=== PATIENT | male | born 1960 | race African-American/Black ===

== ENCOUNTER 2019-04-17 02:16 | Emergency (ER) | payer SELFPAY ==
[~2019-04-17] VITALS: Ht 170.2 cm; Wt 65.3 kg
[2019-04-17 02:22] VITALS: BP 122/76
[2019-04-17 02:36] LABS: BASOPHILS % (AUTO) 0.7 % (0.0-2.0); EOSINOPHILS % (AUTO) 0.4 % (0.0-6.0); HEMATOCRIT 42 % (39-51); HEMOGLOBIN 13.5 g/dL (13.5-17.5); LYMPHOCYTES % (AUTO) 19.2 % (20.0-44.0); MEAN CORPUSCULAR HGB CONC 33 g/dl (31.0-36.0); MEAN CORPUSCULAR VOLUME 91 fL (80-96); MONOCYTES # (AUTO) 0.6 /CMM (0.1-1.30); MONOCYTES % (AUTO) 11.8 % (2.0-12.0); NEUTROPHILS # (AUTO) 3.6 /CMM (1.8-8.9); NEUTROPHILS % (AUTO) 67.9 % (43.0-81.0); PLATELET COUNT (AUTO) 252 /CMM (150-450); RED BLOOD CELL COUNT(AUTO) 4.58 MIL/uL (4.5-6.0); WHITE BLOOD COUNT (AUTO) 5.3 K/uL (4.3-11.0)
[2019-04-17 02:52] LABS: CALCIUM, SERUM 9.6 mg/dL (8.5-10.1); CARBON DIOXIDE 31 mmol/L (21-32); CHLORIDE 100 mmol/L (98-107); CREATININE 1.2 mg/dL (0.6-1.3); GLUCOSE 88 mg/dL (74-106); POTASSIUM 4.4 mmol/L (3.5-5.1); SODIUM SERUM 140 mmol/L (136-145); UREA NITROGEN, BLOOD 17 mg/dL (7-18)
[2019-04-17] MEDS ORDERED: OLANZAPINE 5 MG TABLET ONE (02:56)
[2019-04-17 02:58] LABS: ALANINE AMINOTRANSFERASE 24 U/L (12-78); ALBUMIN 4.4 g/dL (3.4-5.0); ALCOHOL, BLOOD < 3 mg/dL (0-0); ALKALINE PHOSPHATASE 48 U/L (46-116); ASPARTATE AMINOTRANSFERASE 18 U/L (15-37); BILIRUBIN,DIRECT 0.3 mg/dL (0.0-0.2); BILIRUBIN,TOTAL 1.4 mg/dL (0.2-1.0); TOTAL PROTEIN, SERUM 8.1 g/dL (6.4-8.2)
[2019-04-17 02:59] LABS: ACETAMINOPHEN 0 ug/ml (10-30); SALICYLATE < 0.2 mg/dL (2.8-20.0)
[2019-04-17] MEDS: OLANZAPINE 5 MG TABLET PO ONE (03:08)
[2019-04-17 03:51] LABS: APPEARANCE,URINE CLEAR (CLEAR); COLOR,URINE YELLOW (YELLOW); PH,URINE 5.5 (5.0-8.0); PROTEIN,URINE TRACE mg/dl (NEGATIVE); UGLUCOSE NEGATIVE (NEGATIVE)
[2019-04-17 03:52] LABS: BILIRUBIN,URINE SMALL (NEGATIVE); BLOOD, URINE NEGATIVE Ery/uL (NEGATIVE); KETONES,URINE 15 (NEGATIVE); LEUKOCYTE ESTERASE ,URINE NEGATIVE (NEGATIVE); NITRITE, URINE NEGATIVE (NEGATIVE); UROBILINOGEN,URINE 0.2 EU/dL (0.2)
[2019-04-17 03:53] LABS: BACTERIA,URINE Few /HPF (None Seen); SQUAMOUS EPITHELIAL CELL,UR Few /HPF (None Seen); WBC,URINE 0-2 /HPF (0-3)
--- NOTE | 2019-04-17 05:03 | NUR ---
SAM LI ([facility]) [phone]
--- NOTE | 2019-04-17 05:44 | NUR ---
CALLED DAUGHTER TO CODING FILE CLERK PATIENT. NO RESPONSE AT THIS TIME. WILL CALL BACK AGAIN SHORTLY.
--- NOTE | 2019-04-17 06:31 | NUR ---
CALLED DAUGHTER FOR PICKUP. NO RESPONSE AT THIS TIME. CALLED PATIENT SISTER. AWAITING CALL BACK.
--- NOTE | 2019-04-17 07:49 | NUR ---
CALLED FOR FOOD TRAY
--- NOTE | 2019-04-17 08:12 | NUR ---
SPOKE TO SAM (DAUGHTER), WILL FRUIT GRADER OPERATOR PATIENT BY 0930AM.
--- NOTE | 2019-04-17 08:42 | NUR ---
BREAKFAST TRAY PROVIDED. PATIENT TOLERATING PO WELL.
--- NOTE | 2019-04-17 10:21 | NUR ---
Patient discharged to home with kathleen Caballero in stable condition. Written and verbal after care instructions given. Patient and daughter verbalizes understanding of instruction.
== END 2019-04-17 10:25 | disposition home or self-care (01) ==
LOC: ER 02:17
DX: R44.0 Auditory hallucinations (principal)
CPT/HCPCS: 36415; 80048; 80076; 80305; 80307; 80329; 81001; 85025; 99284; G0480; 81000-TC

== ENCOUNTER 2019-06-05 14:16 | Inpatient (IN) | payer BC, OTHER ==
[~2019-06-05] VITALS: Ht 172.7 cm; Wt 62.1 kg
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
--- NOTE | 2019-06-05 14:27 | NUR ---
CODE RYDER PATIENT UNCOOPERATIVE, BECOMING RESTLESS AND AGITATED.
--- NOTE | 2019-06-05 14:55 | NUR ---
blood drawn and sent to lab. Patient still unable to provide urine sample at this time. Urinal provided.
[2019-06-05 15:00] LABS: BASOPHILS % (AUTO) 0.6 % (0.0-2.0); EOSINOPHILS % (AUTO) 0.8 % (0.0-6.0); HEMATOCRIT 41 % (39-51); HEMOGLOBIN 13.2 g/dL (13.5-17.5); LYMPHOCYTES # (AUTO) 1.4 /CMM (0.8-4.8); LYMPHOCYTES % (AUTO) 27.1 % (20.0-44.0); MEAN CORPUSCULAR HGB CONC 32 g/dl (31.0-36.0); MEAN CORPUSCULAR VOLUME 93 fL (80-96); MONOCYTES # (AUTO) 0.6 /CMM (0.1-1.30); MONOCYTES % (AUTO) 11.9 % (2.0-12.0); NEUTROPHILS % (AUTO) 59.6 % (43.0-81.0); PLATELET COUNT (AUTO) 265 /CMM (150-450); RED BLOOD CELL COUNT(AUTO) 4.38 MIL/uL (4.5-6.0); WHITE BLOOD COUNT (AUTO) 5.1 K/uL (4.3-11.0)
[2019-06-05 15:07] LABS: CALCIUM, SERUM 9.3 mg/dL (8.5-10.1); CARBON DIOXIDE 26 mmol/L (21-32); CHLORIDE 106 mmol/L (98-107); CREATININE 1.1 mg/dL (0.6-1.3); GLUCOSE 95 mg/dL (74-106); POTASSIUM 4.1 mmol/L (3.5-5.1); SODIUM SERUM 143 mmol/L (136-145); UREA NITROGEN, BLOOD 16 mg/dL (7-18)
[2019-06-05 15:13] LABS: ALCOHOL, BLOOD < 3 mg/dL (0-0)
--- NOTE | 2019-06-05 15:19 | NUR ---
Ordered by Joseph GUAJARDO to perform a straight catheter. Straight catheter done via sterile technique.
[2019-06-05 15:32] LABS: APPEARANCE,URINE Clear (CLEAR); BILIRUBIN,URINE Negative (NEGATIVE); BLOOD, URINE Negative Ery/uL (NEGATIVE); COLOR,URINE Yellow (YELLOW); KETONES,URINE Negative (NEGATIVE); LEUKOCYTE ESTERASE ,URINE Negative (NEGATIVE); NITRITE, URINE Negative (NEGATIVE); PROTEIN,URINE Negative (NEGATIVE); UGLUCOSE Negative (NEGATIVE); UROBILINOGEN,URINE 0.2 EU/dL (0.2)
[2019-06-05 15:32] LABS: ALANINE AMINOTRANSFERASE 17 U/L (12-78); ALKALINE PHOSPHATASE 70 U/L (46-116); ASPARTATE AMINOTRANSFERASE 19 U/L (15-37); BILIRUBIN,DIRECT 0.1 mg/dL (0.0-0.2); BILIRUBIN,TOTAL 0.8 mg/dL (0.2-1.0); TOTAL PROTEIN, SERUM 8.1 g/dL (6.4-8.2)
[2019-06-05 15:33] LABS: ACETAMINOPHEN 0 ug/ml (10-30)
[2019-06-05 15:34] LABS: SALICYLATE < 0.2 mg/dL (2.8-20.0)
--- NOTE | 2019-06-05 16:55 | NUR ---
KOLBY CAPILLA AUDIO VIDEO MECHANIC AT BEDSIDE FOR EVAL
[2019-06-05] MEDS ORDERED: ARIP10TA17 PO (18:09)
[2019-06-05] MEDS ORDERED: ESCI10TA PO (18:09)
--- NOTE | 2019-06-05 18:15 | NUR ---
report given to biju zhang for arpit.
[2019-06-05] MEDS ORDERED: OLANZAPINE 10 MG VIAL IM ONE ×2 (18:16→18:30)
--- NOTE | 2019-06-05 18:23 | NUR ---
bed assigned to room 220A
--- NOTE | 2019-06-05 18:50 | NUR ---
patient transferred to [facility] at 220A. patient in stable condition. No distress noted.
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
[2019-06-05 20:18] VITALS: BP 138/90
[2019-06-05] MEDS ORDERED: MAG HYDROX/AL HYDROX/SIMETH 30 ML UDC PO PRN (20:30)
[2019-06-05] MEDS ORDERED: MAGNESIUM HYDROXIDE 30 ML UDC PO PRN (20:30)
[2019-06-05] MEDS ORDERED: ACETAMINOPHEN 325 MG TABLET PO PRN (20:30)
[2019-06-05] MEDS ORDERED: LORAZEPAM 0.5 MG TABLET PO PRN (20:30)
[2019-06-05 20:35] VITALS: BP 135/91
[2019-06-05] MEDS ORDERED: BLOOD SUGAR DIAGNOSTIC 1 EACH STRIP IN ONE (22:00)
[2019-06-06 07:56] LABS: CHOLESTEROL 194 mg/dL (<200); HDL CHOLESTEROL 73 mg/dL (40-60); LDL 114 mg/dL (0-99); TRIGLYCERIDES 42 mg/dL (30-150)
[2019-06-06 08:00] VITALS: BP 139/96
[2019-06-06] MEDS: OLANZAPINE 2.5 MG TABLET PO SCH ×2 (14:28→20:18)
[2019-06-06 16:00] VITALS: BP 117/70
--- NOTE | 2019-06-06 16:26 | NUR ---
DR. BAH SAW THIS NEW PT. ORDERS GIVEN.STARTED ON ZYPREXA.
[2019-06-06 20:30] VITALS: BP 103/53
[2019-06-06] MEDS: ATORVASTATIN 10 MG TABLET PO SCH (21:04)
[2019-06-07 07:38] LABS: BASOPHILS # (AUTO) 0.1 /CMM (0.0-0.2); BASOPHILS % (AUTO) 1.3 % (0.0-2.0); EOSINOPHILS % (AUTO) 2.3 % (0.0-6.0); HEMATOCRIT 38 % (39-51); HEMOGLOBIN 12.4 g/dL (13.5-17.5); LYMPHOCYTES # (AUTO) 1.1 /CMM (0.8-4.8); LYMPHOCYTES % (AUTO) 26.5 % (20.0-44.0); MEAN CORPUSCULAR HGB CONC 33 g/dl (31.0-36.0); MEAN CORPUSCULAR VOLUME 92 fL (80-96); MONOCYTES # (AUTO) 0.5 /CMM (0.1-1.30); MONOCYTES % (AUTO) 11.7 % (2.0-12.0); NEUTROPHILS # (AUTO) 2.3 /CMM (1.8-8.9); NEUTROPHILS % (AUTO) 58.2 % (43.0-81.0); PLATELET COUNT (AUTO) 214 /CMM (150-450); RED BLOOD CELL COUNT(AUTO) 4.16 MIL/uL (4.5-6.0)
[2019-06-07 07:56] LABS: CALCIUM, SERUM 8.5 mg/dL (8.5-10.1); CREATININE 1.1 mg/dL (0.6-1.3); POTASSIUM 4.3 mmol/L (3.5-5.1)
[2019-06-07 08:00] VITALS: BP 115/75
[2019-06-07] MEDS: OLANZAPINE 2.5 MG TABLET PO SCH ×2 (08:42→17:09)
[2019-06-07] MEDS: PANTOPRAZOLE 40 MG TABLET.DR PO SCH (08:43)
[2019-06-07 16:00] VITALS: BP 114/68
[2019-06-07 21:21] VITALS: BP 140/76
[2019-06-07] MEDS: ATORVASTATIN 10 MG TABLET PO SCH (22:31)
[2019-06-08] MEDS: TEMAZEPAM 7.5 MG CAPSULE PO PRN ×2 (00:56→23:47)
--- NOTE | 2019-06-08 00:56 | NUR ---
PRN RESTORIL GIVEN PATIENT GOT OUT OF BED & STATED THAT HE IS UNABLE TO SLEEP & NEED TO TAKE SLEEPING MEDICINE, RESTORIL 7.5 MG PO 1 CAP PRN GIVEN, WILL REASSESS FOR EFFECTIVENESS.
[2019-06-08 08:00] VITALS: BP 112/65
[2019-06-08] MEDS: OLANZAPINE 2.5 MG TABLET PO SCH (08:08)
[2019-06-08] MEDS: PANTOPRAZOLE 40 MG TABLET.DR PO SCH (08:08)
--- NOTE | 2019-06-08 13:11 | NUR ---
UR NOTE: ASHOK contacted [employer] Morataya. PHONE [phone] FX# [phone] TO REQUEST ADDITIONAL DAYS PT WAS ONLY AUTHORIZED 3 DAYS FROM 06/05/19-06/07/19. PER TIESHA PT IS NOT AUTHORIZED FOR TODAY. ASHOK FAXED UPDATED CLINICAL NOTES.
--- NOTE | 2019-06-08 13:38 | NUR ---
FAMILY CONTACT: ASHOK spoke with pts daughter Teodora [phone] and pts former significant other (Teodora's mother) Nimisha [phone] and informed them that pts HMO insurance has only authorized 3 days and ASHOK has faxed clinicals for continued authorization. Family stated that they were only expecting pt to be on a 72 hour hold but understand that if pt needs to stay longer and if HMO authorizes additional days they agree with treatment. Nimisha stated that pt currently lives with her and her daughter at [address] [place] [address] [address] and stated that they wish for pt to return home. Nimisha also stated that pt is employed with [employer] and states that they need the FML/ Disability form to be filled out by the psychiatrist so that the [employer] can provide pt with a one year paid leave due to his mental illness. Nimisha states that the [employer] has denied pt to return back to work until he is medically/psychiatrically cleared to return and have offered for him to take a one year disability leave. Per Nimisha pt has not been working since March 2019 when he had his psychotic episode. Nimisha and pts daughter are very supportive and are in agreement with treatment plan.
--- NOTE | 2019-06-08 14:36 | NUR ---
INITIAL DISCHARGE PLAN: Per pts significant other Nimisha [phone] pts will be returning to her home [address] pt lives with her and his daughter Teodora [phone]. SW will help form a safe and proper discharge in collaboration with .
[2019-06-08 16:00] VITALS: BP 115/82
--- NOTE | 2019-06-08 16:08 | NUR ---
GROUP NOTE: Pt refused to attend group on this present day discussing the topic of discharge planning. Pt mumbled and stated, "no no no I want to sleep." Pt appeared to be responding to internal stimuli.
--- NOTE | 2019-06-08 19:55 | NUR ---
GPS RN NOTE CALLED PHARMACY, SPOKE TO MARIO TO VERIFY ZYPREXA 5MG ORDER SCHEDULED AT 1999 SINCE CONSENT SHOWS ZYPREXA DOSAGE UP TO 2.5-4 MG PO BID. MARIO REVIEWED THE CONSENT & STATED THAT UP TO 8 MG OF ZYPREXA PER DAY COULD BE GIVEN & IT IS OK TO GIVE ZYPREXA 5 MG SCHEDULED AT 1999 TODAY.
[2019-06-08] MEDS ORDERED: OLANZAPINE 5 MG TABLET PO SCH (20:00)
[2019-06-08 20:40] VITALS: BP 123/79
[2019-06-08] MEDS: ATORVASTATIN 10 MG TABLET PO SCH (21:55)
--- NOTE | 2019-06-08 23:49 | NUR ---
PRN RESTORIL GIVEN PATIENT STATED THAT HE IS UNABLE TO SLEEP, PRN RESTORIL 7.5 MG 1 CAP PO GIVEN.
--- NOTE | 2019-06-09 03:29 | NUR ---
PRN ATIVAN GIVEN patient noted to be very restless, anxious, pacing in & out of his room, agitated toward his roommate & staff, prn ativan 0.5 mg 1 tab po given.
[2019-06-09] MEDS: PANTOPRAZOLE 40 MG TABLET.DR PO SCH (07:58)
[2019-06-09 08:00] VITALS: BP 132/76
[2019-06-09] MEDS: OLANZAPINE 2.5 MG TABLET PO SCH (08:14)
--- NOTE | 2019-06-09 15:26 | NUR ---
UR NOTE: SW FAXED CLINICALS TO [employer] Morataya. PHONE [phone] FX# [phone]. SW RECEIVED FAX STATING PT HAS BEEN AUTHORIZED 1 ADDITIONAL DAY 06/08/19 AND ARE REQUESTING UPDATED CLINICAL INFORMATION FOR ADDITIONAL DAYS.
[2019-06-09 16:00] VITALS: BP 122/74
--- NOTE | 2019-06-09 16:10 | NUR ---
GROUP NOTE: SW encouraged pt to participate in group therapy discussing, "reality-testing." Pt was asleep and not easily aroused.
[2019-06-09] MEDS ORDERED: OLANZAPINE 5 MG TABLET PO SCH (20:00)
[2019-06-09 20:07] VITALS: BP 138/68
[2019-06-09] MEDS: ATORVASTATIN 10 MG TABLET PO SCH (21:19)
[2019-06-10 08:00] VITALS: BP 110/86
[2019-06-10] MEDS: PANTOPRAZOLE 40 MG TABLET.DR PO SCH (08:35)
[2019-06-10] MEDS: OLANZAPINE 2.5 MG TABLET PO SCH (08:35)
[2019-06-10 16:00] VITALS: BP 148/84
[2019-06-10] MEDS ORDERED: OLANZAPINE 5 MG TABLET PO SCH (20:00)
[2019-06-10 20:16] VITALS: BP 109/71
[2019-06-10 20:17] VITALS: BP 124/67
[2019-06-10] MEDS: ATORVASTATIN 10 MG TABLET PO SCH (21:22)
[2019-06-11 08:00] VITALS: BP 114/60
[2019-06-11] MEDS: OLANZAPINE 2.5 MG TABLET PO SCH (08:09)
[2019-06-11] MEDS: PANTOPRAZOLE 40 MG TABLET.DR PO SCH (08:09)
--- NOTE | 2019-06-11 08:54 | NUR ---
UR NOTE: ASHOK FAXED CLINICALS TO [facility] [employer] [facility] Morataya. PHONE [phone] FX# [phone]. ASHOK RECEIVED FAX THAT PT HAS BEEN AUTHORIZED FROM 06/05/19-06/10/19.
--- NOTE | 2019-06-11 13:17 | NUR ---
FAMILY CONTACT: ASHOK contacted pts daughter Teodora [phone] and informed her pt will be discharged tomorrow Saturday06/12/19, daughter stated she will pick pt up at 12:30pm.
--- NOTE | 2019-06-11 15:18 | NUR ---
GROUP NOTE: SW encouraged pt to attend group therapy on this present day discussing "suicidal urges." Pt was present in group and stated that he no longer is hearing voices and that he does not want to kill himself. Pt maintained appropriate eye contact, his mood was pleasant with congruent affect.
[2019-06-11 16:00] VITALS: BP 130/69
[2019-06-11] MEDS ORDERED: OLANZAPINE 5 MG TABLET PO SCH (20:00)
[2019-06-11] MEDS: ATORVASTATIN 10 MG TABLET PO SCH (20:44)
[2019-06-11 20:50] VITALS: BP 116/69
[2019-06-12 08:00] VITALS: BP 129/68
[2019-06-12] MEDS: PANTOPRAZOLE 40 MG TABLET.DR PO SCH (08:05)
--- NOTE | 2019-06-12 08:50 | NUR ---
DR. KAN GAVE AN ORDER FOR STAT CBC, BMP AND STAT U/A.
[2019-06-12 09:48] LABS: APPEARANCE,URINE CLEAR (CLEAR); BILIRUBIN,URINE NEGATIVE (NEGATIVE); BLOOD, URINE NEGATIVE Ery/uL (NEGATIVE); COLOR,URINE YELLOW (YELLOW); KETONES,URINE NEGATIVE (NEGATIVE); LEUKOCYTE ESTERASE ,URINE NEGATIVE (NEGATIVE); NITRITE, URINE NEGATIVE (NEGATIVE); PROTEIN,URINE NEGATIVE (NEGATIVE); UGLUCOSE NEGATIVE (NEGATIVE); UROBILINOGEN,URINE 0.2 EU/dL (0.2)
[2019-06-12 09:57] LABS: CALCIUM, SERUM 9.5 mg/dL (8.5-10.1); CREATININE 1.2 mg/dL (0.6-1.3); POTASSIUM 4.4 mmol/L (3.5-5.1)
[2019-06-12 10:29] LABS: BASOPHILS # (AUTO) 0.1 /CMM (0.0-0.2); EOSINOPHILS % (AUTO) 2.2 % (0.0-6.0); HEMATOCRIT 43 % (39-51); HEMOGLOBIN 13.7 g/dL (13.5-17.5); LYMPHOCYTES % (AUTO) 17.8 % (20.0-44.0); MEAN CORPUSCULAR HGB CONC 32 g/dl (31.0-36.0); MEAN CORPUSCULAR VOLUME 93 fL (80-96); MONOCYTES # (AUTO) 0.5 /CMM (0.1-1.30); MONOCYTES % (AUTO) 8.3 % (2.0-12.0); NEUTROPHILS # (AUTO) 4.1 /CMM (1.8-8.9); NEUTROPHILS % (AUTO) 70.7 % (43.0-81.0); PLATELET COUNT (AUTO) 231 /CMM (150-450); RED BLOOD CELL COUNT(AUTO) 4.64 MIL/uL (4.5-6.0); WHITE BLOOD COUNT (AUTO) 5.8 K/uL (4.3-11.0)
--- NOTE | 2019-06-12 10:37 | NUR ---
DISCHARGE NOTE: Pt will be discharged at 12:30pm via private [place] [address] [facility]. Pts daughter Teodora [phone] will be picking pt up and transporting home. Pts mood is euthymic with congruent affect. Pt denied visual/auditory hallucinations and denied suicidal/homicidal ideation. Pt will follow up with Psychiatrist: Dr. Melody Torres [address] [place] [id number] on Saturday06/19/19 at 2:00pm. Pt was given a referral to [facility] Address: [address] [place] [address] . The multidisciplinary exit care form was done, printed, signed, and given to the patient.
--- NOTE | 2019-06-12 12:11 | NUR ---
DR. KAN GAVE AN ORDER TO D/C HOLD AND D/C HOME AND TO FOLLOW UP WITH PSYCH AND MEDICAL DOCTORS. ERNST PRAKASH MADE AWARE OF THE DISCHARGE AND PROVIDED A PRESCRIPTIONS.
--- NOTE | 2019-06-12 14:00 | NUR ---
pt discharge by dr. colon. heel stiffener agrees with discharge plan. pt going home. being picked up by his daughters. pt is alert oriented x 4 and ambulatory. he is calm and cooperative. denies s/i and/or h/i at time of discharge. no acute distress noted. exitcare completed. home med prescribed. skin integrity intact. belongings returned. pt left in stable condition.
--- NOTE | 2019-06-16 14:55 | NUR ---
UR NOTE: ASHOK RE-FAXED CLINICALS TO [employer] T[employer]HA Cosby PHONE [phone] FX# [phone].
== END 2019-06-12 14:00 | disposition home or self-care (01) | DRG 885 ==
LOC: ER 14:16 → GPS 18:32
PROVIDERS: ADMIT Psychiatry & Neurology Psychiatry; ATTEND Nurse Practitioner Acute Care
DX: F25.0 Schizoaffective disorder, bipolar type (principal); D61.818 Other pancytopenia; F23 Brief psychotic disorder; D63.8 Anemia in other chronic diseases classified elsewhere; E78.5 Hyperlipidemia, unspecified; E86.0 Dehydration; K21.9 Gastro-esophageal reflux disease without esophagitis; F09 Unspecified mental disorder due to known physiological condition; R79.89 Other specified abnormal findings of blood chemistry
CPT/HCPCS: 36415; 80048-TC; 80061-TC; 80076-TC; 80305; 81000-TC; 82962-TC; 85025-TC; 87081-TC; G0480; J3490